=== PATIENT | male | born 1960 | race African-American/Black ===

== ENCOUNTER 2024-10-07 13:13 | Inpatient (IN) | payer BC ==
[2024-10-07 14:34] LABS: ABSOLUTE IMMATURE GRANULOCYTES 0.05 x10^3/uL (0.0-0.031); BASOPHILS # 0.05 x10^3/uL (0.01-0.08); EOSINOPHIL % 0.4 % (0.8-7.0); EOSINOPHILS # 0.03 x10^3/uL (0.04-0.54); MCHC 31.7 g/dl (32.3-36.5); MEAN CELL VOLUME 86.1 fl (79.0-92.2); MEAN PLT VOLUME 8.8 fl (9.4-12.4); MONOCYTE # 0.90 x10^3/uL (0.30-0.82); MONOCYTE % 11.6 % (5.3-12.2); RDW 14.5 % (12.2-16.4)
[2024-10-07 14:47] LABS: INR 1.11 (0.83-1.09); PROTHROMBIN TIME (PATIENT) 12.2 SEC (9.7-13.0)
[2024-10-07 14:50] LABS: ACTIVATED PTT 31.0 SECONDS (25.2-36.5)
[2024-10-07 14:59] LABS: CO2 22.0 mmol/L (21-32); GLUCOSE,RANDOM 114.0 mg/dL (74-106)
[2024-10-07 15:02] LABS: CREATININE 2.6 mg/dL (0.55-1.3); SGOT/AST 20.0 U/L (15-37); SGPT/ALT 21.0 U/L (13-61)
[2024-10-07 15:04] LABS: TOT PROT 7.1 g/dl (6.4-8.2)
[2024-10-07 15:05] LABS: ALK PHOS 68.0 U/L (45-117)
[2024-10-07 15:07] LABS: N-TERMINAL BNP 3933.8 pg/ml (5-125)
[2024-10-07 16:09] LABS: EPI CELLS 1 /uL (0-25.1); HYALINE CASTS 0 /uL (0-3.1); URINE APPEARANCE CLEAR; URINE BACTERIA 0 /uL (0-1359); URINE BILIRUBIN NEGATIVE (NEGATIVE); URINE COLOR YELLOW; URINE GLUCOSE (UA) 3+ (NEGATIVE); URINE KETONE NEGATIVE (NEGATIVE); URINE LEUK ESTERASE NEGATIVE (NEGATIVE); URINE NITRITE NEGATIVE (NEGATIVE); URINE PROTEIN 1+ (NEGATIVE); URINE RBC 5 /uL (0-23.9); URINE UROBILINOGEN 0.2 mg/dL (0.2-1.0); URINE WBC 2 /uL (0-25.8)
[2024-10-07] MEDS ORDERED: HEPARIN NA (PORCINE) 5,000 UNITS/ML 1ML VIAL IVPUSH PRN ×3 (16:11→17:07)
[2024-10-07] MEDS ORDERED: HEPARIN NA (PORCINE) 5,000 UNITS/ML 1ML VIAL ONE (16:17)
[2024-10-07] MEDS: HEPARIN NA (PORCINE) 5,000 UNITS/ML 1ML VIAL IVPUSH ONE (16:20)
[2024-10-07] MEDS: HEPARIN INFUSION - 25,000 UNITS/500 ML INFUS.BAG IVPB SCH ×2 (16:37→16:57)
[2024-10-07] MEDS ORDERED: HEPARIN INFUSION - 25,000 UNITS/500 ML INFUS.BAG IVPB ONE (16:41)
[2024-10-07] MEDS: SODIUM CHLORIDE 1,000 ML IV SCH (17:36)
[2024-10-07 23:21] VITALS: BMI 27.1
[2024-10-08] MEDS ORDERED: SODIUM POLYSTYRENE SULFONATE 15 GM/60 ML BOTTLE PO PRN (02:26)
[2024-10-08 05:21] LABS: MCHC 31.7 g/dl (32.3-36.5); MEAN CELL VOLUME 86.6 fl (79.0-92.2); MEAN PLT VOLUME 9.1 fl (9.4-12.4); RDW 14.6 % (12.2-16.4)
[2024-10-08 05:51] LABS: CO2 22.0 mmol/L (21-32); GLUCOSE,RANDOM 100.0 mg/dL (74-106)
[2024-10-08 05:54] LABS: CREATININE 2.4 mg/dL (0.55-1.3); SGOT/AST 22.0 U/L (15-37); SGPT/ALT 20.0 U/L (13-61)
[2024-10-08] MEDS: HEPARIN NA (PORCINE) 5,000 UNITS/ML 1ML VIAL IVPUSH PRN (05:54)
[2024-10-08 05:56] LABS: LDL CHOLESTEROL (ONLY SJRH) 54 mg/dL (5-100); TOT PROT 7.4 g/dl (6.4-8.2)
[2024-10-08 05:57] LABS: ALK PHOS 73.0 U/L (45-117)
[2024-10-08] MEDS: INSULIN ASPART SLIDING SCALE (NOVOLOG) 1 VIAL SQ SCH (06:07)
[2024-10-08] MEDS: CHLORTHALIDONE 25 MG TABLET PO SCH (06:21)
[2024-10-08] MEDS ORDERED: INSULIN ASPART SLIDING SCALE (NOVOLOG) 1 VIAL SQ SCH (07:00)
[2024-10-08] MEDS: CHOLECALCIFEROL (VIT D3) 1,000 UNIT (25 MCG) TABLET PO SCH (09:17)
[2024-10-08] MEDS: CALCITRIOL 0.25 MCG CAPSULE (FP) PO SCH (09:17)
[2024-10-08] MEDS: LOSARTAN POTASSIUM 50 MG TABLET PO SCH (09:17)
[2024-10-08] MEDS: amLODIPine BESYLATE 5 MG TABLET (FP) PO SCH (09:17)
[2024-10-08] MEDS ORDERED: PIOGLITAZONE HCL 30 MG TABLET PO SCH (10:00)
[2024-10-08] MEDS ORDERED: PATIENT'S OWN MEDICATION (NON-FORMULARY) (Dapagliflozin Propanediol 10 MG Tablet) PO SCH (10:00)
[2024-10-08] MEDS: ATORVASTATIN CA 40 MG TABLET (FP) PO SCH (21:18)
[2024-10-09 06:39] LABS: MCHC 31.2 g/dl (32.3-36.5); MEAN CELL VOLUME 86.1 fl (79.0-92.2); MEAN PLT VOLUME 9.3 fl (9.4-12.4); RDW 14.6 % (12.2-16.4)
[2024-10-09 07:07] LABS: CO2 25.0 mmol/L (21-32)
[2024-10-09 07:08] LABS: GLUCOSE,RANDOM 124.0 mg/dL (74-106)
[2024-10-09 07:10] LABS: SGOT/AST 21.0 U/L (15-37); SGPT/ALT 21.0 U/L (13-61)
[2024-10-09 07:11] LABS: CREATININE 2.4 mg/dL (0.55-1.3)
[2024-10-09 07:12] LABS: TOT PROT 6.9 g/dl (6.4-8.2)
[2024-10-09 07:13] LABS: ALK PHOS 68.0 U/L (45-117)
[2024-10-09] MEDS: LOSARTAN POTASSIUM 50 MG TABLET PO SCH (09:56)
[2024-10-09] MEDS ORDERED: FENTANYL CITRATE/PF 50 MCG/ML VIAL ONE ×7 (13:39→15:07)
[2024-10-09] MEDS: FENTANYL CITRATE/PF 50 MCG/ML VIAL IVPUSH ONE ×7 (13:40→16:45)
[2024-10-09] MEDS: HEPARIN NA (PORCINE) 5,000 UNITS/ML 1ML VIAL IVPUSH ONE (14:30)
[2024-10-09] MEDS: INSULIN GLARGINE (LANTUS) 100 UNITS/ML UNITS SQ SCH (22:00)
[2024-10-10 02:06] LABS: PROTEIN S FREE 103 % (61-136)
[2024-10-10 06:40] LABS: ABSOLUTE IMMATURE GRANULOCYTES 0.07 x10^3/uL (0.0-0.031); BASOPHILS # 0.05 x10^3/uL (0.01-0.08); EOSINOPHIL % 1.0 % (0.8-7.0); EOSINOPHILS # 0.07 x10^3/uL (0.04-0.54); MCHC 31.0 g/dl (32.3-36.5); MEAN CELL VOLUME 86.3 fl (79.0-92.2); MEAN PLT VOLUME 9.3 fl (9.4-12.4); MONOCYTE # 1.01 x10^3/uL (0.30-0.82); MONOCYTE % 14.9 % (5.3-12.2); RDW 14.6 % (12.2-16.4)
[2024-10-10 06:53] LABS: CO2 25.0 mmol/L (21-32); GLUCOSE,RANDOM 109.0 mg/dL (74-106)
[2024-10-10 06:56] LABS: CREATININE 2.4 mg/dL (0.55-1.3); SGOT/AST 13.0 U/L (15-37); SGPT/ALT 17.0 U/L (13-61)
[2024-10-10 06:57] LABS: TOT PROT 6.6 g/dl (6.4-8.2)
[2024-10-10 06:59] LABS: ALK PHOS 59.0 U/L (45-117)
[2024-10-10] MEDS: APIXABAN 5 MG TABLET PO SCH (10:22)
[2024-10-10 15:07] LABS: DRVVT - 55.5 sec (0.0-47.0)
[2024-10-10 15:30] VITALS: BP 132/75; PULSE 107; RESP 18; TEMP 98.4
[2024-10-10 16:07] LABS: PROTEIN S, FREE 104 % (61-136); VON WILLEBRAND ANTIGEN 365 % (50-200)
[2024-10-10] MEDS ORDERED: APIXABAN 5 MG TABLET PO SCH (22:00)
== END 2024-10-10 16:30 | disposition home or self-care (01) | DRG 164 ==
LOC: JER 13:13 → JERBED 17:32 → J2W 23:08
PROVIDERS: ADMIT Student in an Organized Health Care Education/Training Program; ATTEND Internal Medicine
PROC: 02CQ3ZZ Extirpation of Matter from Right Pulmonary Artery, Percutaneous Approach (ICD-10-PCS; principal; 2024-10-09)
PROC: 03PY3YZ Removal of Other Device from Upper Artery, Percutaneous Approach (ICD-10-PCS; 2024-10-10)
DX: I26.92 Saddle embolus of pulmonary artery without acute cor pulmonale (principal); I24.89 Other forms of acute ischemic heart disease; I82.411 Acute embolism and thrombosis of right femoral vein; N18.4 Chronic kidney disease, stage 4 (severe); I10 Essential (primary) hypertension; E78.5 Hyperlipidemia, unspecified; E11.9 Type 2 diabetes mellitus without complications; I12.9 Hypertensive chronic kidney disease with stage 1 through stage 4 chronic kidney disease, or unspecified chronic kidney disease; I27.20 Pulmonary hypertension, unspecified
CPT/HCPCS: 0241U-QW; 36415; 37184; 37188; 71045-TC-FY; 71275-TC; 76000-TC-FY; 76998-TC; 80053; 80061; 81003; 81240; 81241; 82607; 82746; 82962; 83735; 83880; 84100; 84484; 85025; 85027; 85246; 85300; 85303; 85305; 85306; 85379; 85384; 85610; 85613; 85730; 85732; 87086; 93005; 93010; 93306-TC; 93970-TC; 99291; C1757; C1769; C1894; J1644